=== PATIENT | female | born 1970 | race African-American/Black ===

== ENCOUNTER 2018-04-02 18:32 | Observation (INO) | payer OTHER ==
[~2018-04-02 18:32] MED LIST: FLUTI110I INH; PERC10TA27 PO
[2018-04-02] MEDS ORDERED: PERC10TA27 PO (18:53)
[2018-04-02] MEDS ORDERED: PROM12.54 PO (18:53)
[2018-04-02] MEDS ORDERED: CEPH-460 PO (18:53)
[2018-04-02] MEDS ORDERED: SODIUM CHLOR 0.9% 1000 ML INJ 1,000 ML IV ONE (19:15)
[2018-04-02] MEDS ORDERED: PROCHLORPERAZINE INJ 10 MG/2 ML VIAL IV PUSH ONE (19:30)
--- NOTE | 2018-04-02 19:32 | PD ---
HPI Chief Complaint: GI Complaint Time Seen by Provider: 19:00 Travel History International Travel<30 days: No Contact w/Intl Traveler<30days: No Traveled to known affect area: No History of Present Illness HPI The patient is a 47 year old female who presents to the [facility] emergency department with a history of nausea and vomiting that has been persistent since Monday. The patient reports that on Monday, 1 week ago she underwent breast reduction with Dr. Martínez and tolerated the procedure well, in fact she reports that this is her second breast reduction with him, however on Monday she additionally underwent an abdominoplasty. She reports that she was discharged on Monday and Monday began to have nausea and vomiting that has been intractable since 4 PM[address] She did [address] Dr[address] Berry in his office earlier today and her drains were removed from her breasts. She reports that he palpated her abdomen and gave her prescription for Zofran. She reports that she has been taking Zofran every 8 hours without relief. She reports that yesterday she had vomiting 10, today she had vomiting 3. She denies having any fevers. She reports having generalized weakness and dyspnea on exertion since yesterday. She denies having any diarrhea. Her last bowel movement was a small hard bowel movement yesterday. She reports that she is taking Dulcolax. On review of systems otherwise, she denies having any cough or congestion, neck pain, chest pain, urinary symptoms, or neurologic symptoms. The patient reports that her abdominal pain has increased postoperatively since yesterday, however she attributes that to pain from the vomiting. The patient reports that she has had increased problems with acid reflux since the surgery. She denies having any lower extremity edema, calf pain, or erythema. She denies being on any blood thinners [facility] Past Medical History Narrative Medical The patient's past medical history is significant for gastritis, COPD, acid reflux, hepatitis C, hyperlipidemia, hypothyroid disorder, arthritis, back pain Cancer: No Cardiovascular Problems: No Diabetes: No Endocrine: Yes Genitourinary: No Hepatitis: No Hiatal Hernia: No Immune Disorder: No Musculoskeletal: Yes (ARTHRITIS, BACK PAIN) Neurologic: No Psychiatric: No Reproductive: No Respiratory: Yes (CURRENT BRONCHIOITIS) Thyroid Disease: Yes (LOW NORM HYPO) ?: Not LMP: HYSTERECTOMY Past Surgical History Narrative Surgical The patient's past surgical history is significant for breast reduction 2, appendectomy, endoscopy and colonoscopy, hysterectomy, bilateral tubal ligation , abdominoplasty. AICD: No Gynecologic Surgery: Yes (TUBAL LIG., HYSTERECTOMY) Hysterectomy: Yes Joint Replacement: No Pacemaker: No Other Surgery: Yes (TUMMY TUCK, BREAST AUGMENTATION) Social History Alcohol Use: No Tobacco Use: No Substance Use: No Allergies-Medications (Allergen,Severity, Reaction): Coded Allergies: doxycycline (Unverified Allergy, Severe, INNER EAR BURNING, 04/02/18) minocycline (Unverified Allergy, Severe, INNER EAR BURNING, 06/27/17) tetracycline (Verified Allergy, Severe, 04/02/18) ears burn Reported Meds & Prescriptions Reported Meds & Active Scripts Active Reported Promethazine (Promethazine HCl) 12.5 Mg Tab Unknown Dose PO Q6H PRN Keflex (Cephalexin) 500 Mg Cap 500 Mg PO Q12H Percocet (Oxycodone-Acetaminophen) 10-325 mg Tab 1 Tab PO Q4H PRN Review of Systems Except as stated in HPI: all other systems reviewed are Neg General / Constitutional: No: Fever Eyes: No: Visual changes HENT: No: Headaches, Congestion Cardiovascular: Positive: Dyspnea on exertion, No: Chest Pain or Discomfort Respiratory: Positive: Shortness of Breath, No: Cough Gastrointestinal: Positive: Nausea, Vomiting, Abdominal Pain, Constipation, Changes in Bowel Habits, Indigestion, No: Diarrhea, Hematemesis, Hematochezia, Loss of Appetite Genitourinary: No: Dysuria Musculoskeletal: No: Pain Skin: No Rash Neurologic: Positive: Weakness (Generalized), No: Focal Abnormalities, Change in Mentation, Slurred Speech, Sensory Disturbance Psychiatric: No: Depression Endocrine: No: Polydipsia Hematologic/Lymphatic: No: Easy Bruising Physical Exam Narrative General: The patient is a well-developed well-nourished female in no acute distress Head and Neck exam: Head is normocephalic atraumatic. Eyes: EOMI, pupils are equal round and reactive to light. Nose: Midline septum with pink mucous membranes Mouth: Dentition unremarkable. Moist mucus membranes. Posterior oropharynx is not erythematous. No tonsillar hypertrophy. Uvula midline. Airway patent. Neck: No palpable lymphadenopathy. No nuchal rigidity. No thyromegaly. Cardiovascular: Sinus tachycardia in the 1 teens without murmurs, gallops, or rubs. No pulse deficit to the extremities on simultaneous auscultation and palpation of her radial artery. On examination of the patient's chest, the patient has postoperative wounds noted that are healing well without any signs of erythema, edema, or drainage. Lungs: Clear to auscultation bilaterally. No wheezes, rhonchi, or rales. Abdomen: Mildly distended with normoactive bowel sounds audible. The patient has an abdominal binder in place with [address] draining a serosanguineous drainage. The patient's abdominal binder was released and the abdominal wounds were examined. The patient has healing wounds without any signs of infection or drainage along the lower aspect of the abdomen. No guarding, rebound, or rigidity. Extremities: No clubbing, cyanosis, or edema. 2+ pulses in all 4 extremities. No calf tenderness on palpation. Negative Homans sign. Back: No costovertebral angle tenderness to palpation. Neurologic Exam: Grossly nonfocal. Skin Exam: No rash noted. Intact skin that is warm and dry. Data Data Orders Orders Electrocardiogram (04/02/18:) Complete Blood Count With Diff (04/02/18:) Comprehensive Metabolic Panel (04/02/18:) Creatine Kinase (Cpk) (04/02/18:) Ckmb (Isoenzyme) Profile (04/02/18:) Troponin I (04/02/18:) Prothrombin Time / Inr (Pt) (04/02/18:) Act Partial Throm Time (Ptt) (04/02/18:) Lipase (04/02/18:) Urinalysis - C+S If Indicated (04/02/18:) Magnesium (Mg) (04/02/18:) Iv Access Insert/Monitor (04/02/18:) Ecg Monitoring (04/02/18:) Oximetry (04/02/18:) Sodium Chlor 0.9% 1000 Ml Inj (Ns 1000 M (04/02/18 19:15) Prochlorperazine Inj (Compazine Inj) (04/02/18 19:30) Abdomen, Kub Only (04/02/18 19:20) Morphine Inj (Morphine Inj) (04/02/18 20:15) Oral Rehydration (04/02/18 20:37) Us Abdomen Gallbladder (04/02/18 21:35) Admit Order (Ed Use Only) (04/02/18 21:37) Labs Laboratory Tests Test 04/02/18 20:15 White Blood Count 12.1 TH/MM3 Red Blood Count 4.93 MIL/MM3 Hemoglobin 12.0 GM/DL Hematocrit 36.9 % Mean Corpuscular Volume 74.8 FL Mean Corpuscular Hemoglobin 24.4 PG Mean Corpuscular Hemoglobin Concent 32.6 % Red Cell Distribution Width 15.2 % Platelet Count 314 TH/MM3 Mean Platelet Volume 8.6 FL Neutrophils (%) (Auto) 82.0 % Lymphocytes (%) (Auto) 9.3 % Monocytes (%) (Auto) 8.2 % Eosinophils (%) (Auto) 0.2 % Basophils (%) (Auto) 0.3 % Neutrophils # (Auto) 9.9 TH/MM3 Lymphocytes # (Auto) 1.1 TH/MM3 Monocytes # (Auto) 1.0 TH/MM3 Eosinophils # (Auto) 0.0 TH/MM3 Basophils # (Auto) 0.0 TH/MM3 CBC Comment DIFF FINAL Differential Comment Prothrombin Time 10.7 SEC Prothromb Time International Ratio 1.1 RATIO Activated Partial Thromboplast Time 25.2 SEC D-Dimer Quantitative (PE/DVT) 2.98 MG/L FEU Blood Urea Nitrogen 11 MG/DL Creatinine 1.09 MG/DL Random Glucose 128 MG/DL Total Protein 7.7 GM/DL Albumin 3.3 GM/DL Calcium Level 8.8 MG/DL Magnesium Level 2.6 MG/DL Alkaline Phosphatase 97 U/L Aspartate Amino Transf (AST/SGOT) 183 U/L Alanine Aminotransferase (ALT/SGPT) 149 U/L Total Bilirubin 0.8 MG/DL Sodium Level 141 MEQ/L Potassium Level 3.6 MEQ/L Chloride Level 103 MEQ/L Carbon Dioxide Level 29.6 MEQ/L Anion Gap 8 MEQ/L Estimat Glomerular Filtration Rate 65 ML/MIN Total Creatine Kinase 63 U/L Troponin I LESS THAN 0.02 NG/ML Lipase 99 U/L MDM Medical Decision Making Medical Screen Exam Complete: Yes Emergency Medical Condition: Yes Medical Record Reviewed: Yes Differential Diagnosis Ileus, versus reflux from pressure from abdominal binder, versus bowel obstruction, versus electrolyte derangements, versus dehydration Narrative Course During the course of the patient's emergency department visit, the patient's history, examination, and differential diagnosis were reviewed with the patient. The patient was placed on a research and development engineer with oximetry and frequent blood pressure monitoring. The patient had IV access obtained and blood work sent for analysis. The patient's case was discussed with Dr. Berry. He recommended that the abdominal binder be released. He recommended a KUB to rule out obstruction although he doubts any obstruction as she did not have a hernia that required repair. The patient had a EKG done on arrival that shows a sinus tachycardia rate of 102, QRS duration 77 ms, QTC [address] segment elevation is noted. The patient was initially provided normal saline 1 L IV fluid bolus, Compazine 5 mg IV. The patient's laboratory studies were reviewed and remarkable for a white count of 12.1, hemoglobin 12, platelets 314 with neutrophils 82, CMP is remarkable for creatinine 1.09, glucose 128, magnesium 2.6, AST 183, ALT 149, cardiac enzymes within normal limits, lipase 99, PT PTT within normal limits, d-dimer is 2.98-CTA to rule out PE was ordered, urinalysis shows trace occult. Radiology studies were reviewed and remarkable for Last Impressions Gall Bladder Ultrasound 04/02/182134 Signed Impressions: Service Date/Time: Monday, April 02, 2018 23:07 - CONCLUSION: 1. Mild echogenic debris in the gallbladder with no gallstones or wall thickening. 2. Small amount of free fluid in Apodaca's pouch. Michele Andrew MD Abdomen X-Ray 04/02/[id number] Signed Impressions: Service Date/Time: Monday, April 02, 2018 19:28 - CONCLUSION: No acute abnormality. James Fuller Jr., MD CTA to rule out PE shows no evidence of pulmonary embolism, mild pulmonary infiltrate in the right lower lobe which could represent early pneumonia. Minimal pleural fluid and posterior thickening along the right lower lobe, multiple small gas collections along the posterior aspect of both breasts but no pneumothorax or pneumomediastinum. This is of unclear significance and could be secondary to recent instrumentation. The patient's results were discussed with the patient, including the plan of care. I explained that further testing and/ or monitoring is indicated based on the patient's history, examination, and/ or laboratory findings. Therefore, I recommended admission for additional evaluation. The patient expressed understanding and was agreeable with this plan. The patient was admitted to the hospital in stable condition and sent to a bed under the care of the [facility] service. Physician Communication Physician Communication The patient's case was discussed with Dr. Berry, at 19:28. He recommended a KUB of the abdomen. He recommended hydration and nausea medication. He recommended that I call her back on his cell phone ([phone]) to update them regarding the results. Dr. Berry, called again at approximately 9:35 PM. Given the patient's elevated liver enzymes he agree with the plan to proceed with an ultrasound of the liver. He did agree with the plan to admit the patient for observation for IV fluids and nausea control. The patient's case including history, pertinent physical examination findings, and laboratory studies were discussed with Denice. . It was agreed that the patient would be admitted to the [facility] service. Diagnosis Primary Impression: Nausea & vomiting Qualified Codes: R11.2 - Nausea with vomiting, unspecified Additional Impression: Elevated liver enzymes Admitting Information Admitting Physician Requests: Observation Chelo Adkins MD April 02, 2018 19:32
--- NOTE | 2018-04-02 19:52 | RADRPT ---
EXAM DATE/TIME: 04/02/2018 19:28 [facility] COMPARISON: No previous studies available for comparison. INDICATIONS : Abdominal pain. Recent abdomen surgery. MEDICAL HISTORY : None. SURGICAL HISTORY : Hysterectomy. Tubal ligation. Tummy tuck. Breast augmentation. ENCOUNTER: Initial ACUITY: 4 - 6 days PAIN SCORE: 10/10 LOCATION: Abdomen. FINDINGS: 2 supine views of the abdomen show artifact from the patient's abdominal binder. Gas-filled loops of nondilated large and small bowel observed. There is a loop of small bowel is gas filled within the mi d abdomen. No wall thickening or dilatation. No gross pneumoperitoneum in this supine study. Gas and stool seen within the rectal vault. No discrete organomegaly or abnormal calcifications. Scoliotic cu rvature of the spine. CONCLUSION: No acute abnormality. James Fuller Jr., MD on April 02, 2018 at 19:49 Board Certified Radiologist. This report was verified electronically.
[2018-04-02] MEDS ORDERED: MORPHINE SULFATE 4 MG/ML INJ IV ONE (20:15)
[2018-04-02 20:34] LABS: AUTOMATED NEUTROPHIL # 9.9 TH/MM3 (1.8-7.7); BASOPHIL % 0.3 % (0.0-2.0); EOSINOPHIL % 0.2 % (0.0-4.0); HEMATOCRIT 36.9 % (35.0-46.0); LYMPH % 9.3 % (9.0-44.0); LYMPHOCYTE # 1.1 TH/MM3 (1.0-4.8); MEAN CELL VOLUME 74.8 FL (80.0-100.0); MEAN CORPUSCULAR HEMOGLOBIN 24.4 PG (27.0-34.0); MEAN CORPUSCULAR HGB CONC 32.6 % (32.0-36.0); MEAN PLATELET VOLUME 8.6 FL (7.0-11.0); MONO % 8.2 % (0.0-8.0); PLATELET COUNT 314 TH/MM3 (150-450); RED BLOOD COUNT 4.93 MIL/MM3 (4.00-5.30); RED CELL DISTRIBUTION WIDTH 15.2 % (11.6-17.2); WHITE BLOOD COUNT 12.1 TH/MM3 (4.0-11.0)
[2018-04-02 20:57] LABS: ALBUMIN 3.3 GM/DL (3.4-5.0); ALT (GPT) 149 U/L (10-53); AST (GOT) 183 U/L (15-37); BICARBONATE 29.6 MEQ/L (21.0-32.0); BLOOD UREA NITROGEN 11 MG/DL (7-18); CALCIUM 8.8 MG/DL (8.5-10.1); CHLORIDE 103 MEQ/L (98-107); CREATININE 1.09 MG/DL (0.50-1.00); GLOMERULAR FILTRATION RATE 65 ML/MIN (>89); GLUCOSE,RANDOM 128 MG/DL (74-106); MAGNESIUM 2.6 MG/DL (1.5-2.5); SODIUM (NA) 141 MEQ/L (136-145)
[2018-04-02 20:59] LABS: INTERNATIONAL NORMALIZED RATIO 1.1 RATIO; PROTHROMBIN TIME - PATIENT 10.7 SEC (9.8-11.6)
[2018-04-02 21:01] LABS: ALKALINE PHOSPHATASE 97 U/L (45-117); TOTAL BILIRUBIN ADULT 0.8 MG/DL (0.2-1.0); TOTAL PROTEIN 7.7 GM/DL (6.4-8.2); TROPONIN I LESS THAN 0.02 NG/ML (0.02-0.05)
[2018-04-02] MEDS ORDERED: BISACODYL 10 MG SUPP RECTAL PRN (23:00)
[2018-04-02] MEDS ORDERED: MAGNESIUM HYDROXIDE SUSP 30 ML CUP PO PRN (23:00)
[2018-04-02] MEDS ORDERED: NALOXONE HCL 0.4 MG/ML AMP IV PUSH PRN (23:00)
[2018-04-02] MEDS ORDERED: SODIUM CHLORIDE 0.9% FLUSH 10 ML FLUSH IV FLUSH PRN (23:00)
[2018-04-02] MEDS ORDERED: LACTULOSE SYRUP 20 GM/30 ML CUP PO PRN (23:00)
[2018-04-02] MEDS ORDERED: SENNOSIDES 8.6 MG TAB PO PRN (23:00)
[2018-04-02] MEDS ORDERED: ACETAMINOPHEN 325 MG TAB PO PRN (23:00)
--- NOTE | 2018-04-02 23:03 | HHI.HP ---
HPI Service [facility] Primary Care Physician Ceferino Rawls M.D. Admission Diagnosis Generalized weakness, dehydration, n/v, elevated lfts Diagnoses: Chief Complaint: Intractable nausea, vomiting. Travel History International Travel<30 Days: No Contact w/Intl Traveler <30 Da: No Traveled to Known Affected Are: No History of Present Illness Ms. Cam is a pleasant 47 year old female with a recent history of breast reduction (03/26) and abdominoplasty (03/30) who presents to the ED due to intractable nausea, vomiting. She saw her plastic surgeon, Dr. Berry today who prescribed Zofran for her. Despite supportive care, her symptoms have not subsided. She also reports generalized weakness as well as dyspnea on exertion since yesterday. Patient reports significant odynophagia. She also has a history of GERD but her symptoms have been more pronounced in the last few days. She denies any chest pain, shortness of breath, fever or chills. At the time of this interview, patient is resting well and denies any active nausea vomiting. She does report constipation recently. However she had a bowel movement yesterday. No changes in bladder habits. Review of Systems Except as stated in HPI: all other systems reviewed are Neg Past Family Social History Past Medical History Hypothyroidism, arthritis, GERD Past Surgical History Previous breast reduction surgery, tubal ligation, hysterectomy Reported Medications Promethazine (Promethazine HCl) 12.5 Mg Tab Unknown Dose PO Q6H PRN Keflex (Cephalexin) 500 Mg Cap 500 Mg PO Q12H Percocet (Oxycodone-Acetaminophen) 10-325 mg Tab 1 Tab PO Q4H PRN Allergies: Coded Allergies: doxycycline (Unverified Allergy, Severe, INNER EAR BURNING, 04/02/18) minocycline (Unverified Allergy, Severe, INNER EAR BURNING, 06/27/17) tetracycline (Verified Allergy, Severe, 04/02/18) ears burn Family History Father had coronary artery disease. Mother has hypertension, hyperlipidemia. Social History Alcohol Use: No Tobacco Use: No Substance Use: No Physical Exam Physical Exam GENERAL: This is a well-nourished, well-developed patient, in no apparent distress. SKIN: No rashes, ecchymoses or lesions. Warm and dry. HEAD: Atraumatic. Normocephalic. No temporal or scalp tenderness. EYES: Pupils equal round and reactive. No injection or drainage. ENT: Nose without bleeding, purulent drainage or septal hematoma. Airway patent. NECK: Trachea midline. No lymphadenopathy. Supple, nontender, no meningeal signs. CARDIOVASCULAR: Regular rate and rhythm without murmurs, gallops, or rubs. No JVD. RESPIRATORY: Clear to auscultation. Breath sounds equal bilaterally. No wheezes , rales, or rhonchi. GASTROINTESTINAL: Abdomen soft, non-tender, nondistended. No guarding. Abdominal binder in place as well as [place] drain. MUSCULOSKELETAL: Extremities without clubbing, cyanosis, or edema. NEUROLOGICAL: Awake and alert. Cranial nerves II through XII intact. No focal neurological deficits. Normal speech. Laboratory Laboratory Tests Test 04/02/18 20:15 White Blood Count 12.1 Red Blood Count 4.93 Hemoglobin 12.0 Hematocrit 36.9 Mean Corpuscular Volume 74.8 Mean Corpuscular Hemoglobin 24.4 Mean Corpuscular Hemoglobin Concent 32.6 Red Cell Distribution Width 15.2 Platelet Count 314 Mean Platelet Volume 8.6 Neutrophils (%) (Auto) 82.0 Lymphocytes (%) (Auto) 9.3 Monocytes (%) (Auto) 8.2 Eosinophils (%) (Auto) 0.2 Basophils (%) (Auto) 0.3 Neutrophils # (Auto) 9.9 Lymphocytes # (Auto) 1.1 Monocytes # (Auto) 1.0 Eosinophils # (Auto) 0.0 Basophils # (Auto) 0.0 CBC Comment DIFF FINAL Differential Comment Prothrombin Time 10.7 Prothromb Time International Ratio 1.1 Activated Partial Thromboplast Time 25.2 Blood Urea Nitrogen 11 Creatinine 1.09 Random Glucose 128 Total Protein 7.7 Albumin 3.3 Calcium Level 8.8 Magnesium Level 2.6 Alkaline Phosphatase 97 Aspartate Amino Transf (AST/SGOT) 183 Alanine Aminotransferase (ALT/SGPT) 149 Total Bilirubin 0.8 Sodium Level 141 Potassium Level 3.6 Chloride Level 103 Carbon Dioxide Level 29.6 Anion Gap 8 Estimat Glomerular Filtration Rate 65 Total Creatine Kinase 63 Troponin I LESS THAN 0.02 Lipase 99 Result Diagram: 04/02/18201404/02/182014 Imaging Last Impressions Abdomen X-Ray 04/02/18 1920 Signed Impressions: Service Date/Time: Monday, April 02, 2018 19:28 - CONCLUSION: No acute abnormality. MD Brian Friedman Jr. VTE Risk Assessment Brian VTE Risk Assessment: No/Low Risk (score <= 1) Caprini Risk Assessment Model Point Value = 1 Point Value = 2 Point Value = 3 Point Value = 5 Age 41-60 Minor surgery BMI > 25 kg/m2 Swollen legs Varicose veins or History of unexplained or recurrent spontaneous Oral contraceptives or hormone replacement Sepsis (< 1 month) Serious lung disease, including pneumonia (< 1 month) Abnormal pulmonary function Acute myocardial infarction Congestive heart failure (< 1 month) History of inflammatory bowel disease Medical patient at bed rest Age 61-74 Arthroscopic surgery Major open surgery (> 45 min) Laparoscopic surgery (> 45 min) Malignancy Confined to bed (> 72 hours) Immobilizing plaster cast Central venous access Age >= 75 History of VTE Family history of VTE Factor V Leiden Prothrombin 31700C Lupus anticoagulant Anticardiolipin antibodies Elevated serum homocysteine Heparin-induced thrombocytopenia Other congenital or acquired thrombophilia Stroke (< 1 month) Elective arthroplasty Hip, pelvis, or leg fracture Acute spinal cord injury (< 1 month) Prophylaxis Regimen Total Risk Factor Score Risk Level Prophylaxis Regimen 0-1 Low Early ambulation 2 Moderate Order ONE of the following: *Sequential Compression Device (SCD) *Heparin 5000 units SQ BID 3-4 Higher Order ONE of the following medications: *Heparin 5000 units SQ TID *Enoxaparin/Lovenox 40 mg SQ daily (WT < 150 kg, CrCl > 30 mL/min) *Enoxaparin/Lovenox 30 mg SQ daily (WT < 150 kg, CrCl > 10-29 mL/min) *Enoxaparin/Lovenox 30 mg SQ BID (WT < 150 kg, CrCl > 30 mL/min) AND/OR *Sequential Compression Device (SCD) 5 or more Highest Order ONE of the following medications: *Heparin 5000 units SQ TID (Preferred with Epidurals) *Enoxaparin/Lovenox 40 mg SQ daily (WT < 150 kg, CrCl > 30 mL/min) *Enoxaparin/Lovenox 30 mg SQ daily (WT < 150 kg, CrCl > 10-29 mL/min) *Enoxaparin/Lovenox 30 mg SQ BID (WT < 150 kg, CrCl > 30 mL/min) AND *Sequential Compression Device (SCD) Assessment and Plan Problem List: (1) Nausea & vomiting ICD Code: R11.2 - Nausea with vomiting, unspecified Status: Acute (2) Elevated liver enzymes ICD Code: R74.8 - Abnormal levels of other serum enzymes Status: Acute Assessment and Plan Ms. Cam is a pleasant 47-year-old -[place] female with a recent history of breast reduction as well as abdominoplasty who presents to the emergency department due to nausea and vomiting that started on 04/01/2018. Patient went to her plastic surgeon who prescribed antinausea medication. However, despite supportive care, her symptoms continued to be persistent. Intractable nausea and vomiting Elevated liver enzymes GERD -Clear liquid diet for now. Advance diet as tolerated. -We will give patient 1 dose of Protonix IV. From tomorrow we can start lansoprazole ODT -IV fluid normal saline at 100 cc/h -Elevated liver enzymes AST 183, ALT 149 could be due to gastroenteritis. -CBC, CMP in the morning. -If liver enzymes continue to trend up, consider hepatitis panel. -GB US obtained by ED unremarkable. Mild Acute kidney injury - Creatinine 1.09, eGFR 65. Likely due to volume depletion. - Will repeat chemistry panel in the AM. Continue IV fluid. Misc: - Pt denies having a diagnosis of Hep C. Also, she reports hypothyroidism but does not take any medications. Patient can follow up in the outpatient setting. - A D-dimer was done in the ED and it was elevated. Subsequently, patient underwent CT PE study which is still pending at the time of writing this note. - No clinical suspicion for DVT, PE. D-dimer is likely elevated due to gastroenteritis. Full code. Ambulation. Problem Qualifiers (1) Nausea & vomiting: Qualified Codes: R11.2 - Nausea with vomiting, unspecified Avila Galdamez DO April 02, 2018 23:03
[2018-04-02] MEDS: SODIUM CHLOR 0.9% 1000 ML INJ 1,000 ML IV SCH (23:10)
[2018-04-02] MEDS: METOCLOPRAMIDE HCL 10 MG/2 ML VIAL IV PUSH PRN (23:11)
[2018-04-02] MEDS: MORPHINE SULFATE 4 MG/ML INJ IV PUSH PRN (23:13)
[2018-04-02 23:33] VITALS: BP 136/86; PULSE 89; RESP 18; TEMP 99.1; O2SAT 96
--- NOTE | 2018-04-02 23:35 | RADRPT ---
EXAM DATE/TIME: 04/02/2018 23:07 [facility] COMPARISON: No previous studies available for comparison. INDICATIONS : Right upper quadrant pain. MEDICAL HISTORY : Hypothyroidism. Bronchitis. Arthritis. Back pain. SURGICAL HISTORY : Tubal ligation. Hysterectomy. Tummy tuck. Breast augmentation. ENCOUNTER: Initial ACUITY: 4-6 days PAIN SCORE: 5/10 LOCATION: Right upper quadrant MEASUREMENTS: LIVER: 14.9 cm length COMMON DUCT: 5 mm RIGHT KIDNEY: 9.0 x 4.5 x 3.6 cm FINDINGS: LIVER: Normal echotexture without focal lesion or ductal dilatation. COMMON DUCT: No intraluminal mass or stone visualized. GALLBLADDER: Contains no stones, demonstrates no wall thickening or pericholecystic fluid. Mild echogenic debris is noted in the gallbladder. PANCREAS: The visualized portions are within normal limits. RIGHT KIDNEY: No evidence of hydronephrosis, stone, or mass. A small amount of free fluid is noted in Apodaca's p ouch. CONCLUSION: 1. Mild echogenic debris in the gallbladder with no gallstones or wall thickening. 2. Small amount of free fluid in Apodaca's pouch. Michele Andrew MD on April 02, 2018 at 23:32 Board Certified Radiologist. This report was verified electronically.
[2018-04-03 00:06] VITALS: BP 140/86; PULSE 93; RESP 22; TEMP 99.2; O2SAT 97
[2018-04-03] MEDS ORDERED: IOHEXOL 350 MG/ML 10 ML VIAL (for RAD DIAG) IVCONTRAST ONE ×2 (00:42→18:14)
[2018-04-03] MEDS ORDERED: PANTOPRAZOLE SODIUM 40 MG VIAL IV PUSH ONE (00:45)
--- NOTE | 2018-04-03 00:57 | RADRPT ---
EXAM DATE/TIME: 04/03/2018 00:40 [place] COMPARISON: No previous studies available for comparison. INDICATIONS : Chest pain. IV CONTRAST: 81 cc Omnipaque 350 (iohexol) IV RADIATION DOSE: 18.45 CTDIvol (mGy) MEDICAL HISTORY : Chronic obstructive pulmonary disease. Hepatitis C. SURGICAL HISTORY : Hysterectomy. ENCOUNTER: Initial ACUITY: 1 day PAIN SCALE: 5/10 LOCATION: Bilateral chest TECHNIQUE: Volumetric scanning of the chest was performed using a pulmonary embolism protocol MIP images were re constructed. Using automated exposure control and adjustment of the mA and/or kV according to patien t size, radiation dose was kept as low as reasonably achievable to obtain optimal diagnostic quality images. DICOM format image data is available electronically for review and comparison. Follow-up recommendations for detected pulmonary nodules are based at a minimum on nodule size and pa tient risk factors according to Fleischner Society Guidelines. FINDINGS: PULMONARY ARTERIES: No filling defects are seen in the pulmonary arteries through the segmental level. LUNGS: There is no pneumothorax . There is atelectasis in the posterior lung bases bilaterally. No concerni ng pulmonary nodule is visualized. There is mild patchy infiltrate in the right middle lobe best seen on axial image #65. PLEURAE: There is minimal right posterior pleural fluid and thickening as well as adjacent atelectasis. MEDIASTINUM: There is good visualization of the great vessels of the middle mediastinum. No evidence of mediastin al or hilar adenopathy/mass. MUSCULOSKELETAL: Within normal limits for patient age. MISCELLANEOUS: The visualized upper abdominal organs demonstrate no acute abnormality. There are multiple small gas collections along the posterior aspect of both breasts. CONCLUSION: 1. No evidence of pulmonary embolism. 2. Mild pulmonary infiltrate in the right lower lobe which could represent early pneumonia. 3. Minimal pleural fluid and posterior thickening along the right lower lobe. 4. Multiple small gas collections along the posterior aspects of both breasts but no pneumothorax or pneumomediastinum. This of unclear significance and could be secondary to recent instrumentation. Michele Andrew MD on April 03, 2018 at 0:50 Board Certified Radiologist. This report was verified electronically.
[2018-04-03 01:17] LABS: BILIRUBIN, URINE NEG (NEG); GLUCOSE,URINE NEG (NEG); KETONE, URINE TRACE mg/dL (NEG); NITRITE,URINE NEG (NEG); URINE COLOR YELLOW (YELLW/STRAW); URINE LEUKOCYTE ESTERASE NEG (NEG)
[2018-04-03 01:20] LABS: BLOOD, URINE TRACE (NEG)
[2018-04-03 01:23] LABS: MUCUS URINE FEW /lpf (OCC); SQUAMOUS EPITHELIAL CELL URINE 3 /hpf (0-5)
[2018-04-03 04:29] LABS: AUTOMATED NEUTROPHIL # 8.5 TH/MM3 (1.8-7.7); BASOPHIL % 0.2 % (0.0-2.0); EOSINOPHIL # 0.1 TH/MM3 (0-0.4); HEMATOCRIT 30.6 % (35.0-46.0); HEMOGLOBIN 9.9 GM/DL (11.6-15.3); LYMPH % 13.8 % (9.0-44.0); LYMPHOCYTE # 1.6 TH/MM3 (1.0-4.8); MEAN CELL VOLUME 74.4 FL (80.0-100.0); MEAN CORPUSCULAR HEMOGLOBIN 24.1 PG (27.0-34.0); MEAN CORPUSCULAR HGB CONC 32.4 % (32.0-36.0); MEAN PLATELET VOLUME 9.1 FL (7.0-11.0); MONO % 9.6 % (0.0-8.0); MONOCYTE # 1.1 TH/MM3 (0-0.9); NEUT % 75.4 % (16.0-70.0); PLATELET COUNT 281 TH/MM3 (150-450); RED BLOOD COUNT 4.12 MIL/MM3 (4.00-5.30); RED CELL DISTRIBUTION WIDTH 14.9 % (11.6-17.2); WHITE BLOOD COUNT 11.3 TH/MM3 (4.0-11.0)
[2018-04-03 04:44] VITALS: BP 116/70; PULSE 94; RESP 16; TEMP 98.9; O2SAT 97
[2018-04-03 05:01] LABS: ALBUMIN 2.9 GM/DL (3.4-5.0); ALT (GPT) 114 U/L (10-53); AST (GOT) 83 U/L (15-37); BICARBONATE 27.6 MEQ/L (21.0-32.0); BLOOD UREA NITROGEN 11 MG/DL (7-18); CALCIUM 8.4 MG/DL (8.5-10.1); CHLORIDE 107 MEQ/L (98-107); CREATININE 0.87 MG/DL (0.50-1.00); GLOMERULAR FILTRATION RATE 84 ML/MIN (>89); GLUCOSE,RANDOM 99 MG/DL (74-106); SODIUM (NA) 144 MEQ/L (136-145)
[2018-04-03 05:07] LABS: ALKALINE PHOSPHATASE 81 U/L (45-117); TOTAL BILIRUBIN ADULT 0.5 MG/DL (0.2-1.0); TOTAL PROTEIN 6.3 GM/DL (6.4-8.2)
[2018-04-03] MEDS: LANSOPRAZOLE SOLUTAB 30 MG TAB PO SCH (07:38)
[2018-04-03] MEDS: ONDANSETRON ODT 4 MG TAB PO PRN ×2 (07:38→21:18)
[2018-04-03] MEDS: MORPHINE SULFATE 4 MG/ML INJ IV PUSH PRN (07:39)
[2018-04-03] MEDS: METOCLOPRAMIDE HCL 10 MG/2 ML VIAL IV PUSH PRN ×2 (07:42→23:22)
[2018-04-03 08:10] VITALS: BP 120/74; PULSE 85; RESP 20; TEMP 98.5; O2SAT 96
[2018-04-03] MEDS: SODIUM CHLORIDE 0.9% FLUSH 10 ML FLUSH IV FLUSH SCH ×2 (09:00→21:00)
--- NOTE | 2018-04-03 09:38 | HHI.PR ---
Subjective Remarks Follow up on patient with intractable N/V, s/p breast reduction 03/26 and abdominoplasty 03/30. Patient seen and examined. Unable to tolerate clear liquid diet. +N/V this am. No fever or chills. She reports one episode of watery diarrhea yesterday and one this am. + epigastric pain. She denies any black/bloody/tarry stools. She denies any blood in the emesis. She has been on Keflex as outpatient following her surgical procedures. She has a previous hx of Cdiff in 2011. She reports occasional GERD like sxs relieved with Zantac. She has appointment with her plastic surgeon on Monday to have her abdominal drains removed. Objective Vitals Vital Signs Date Time Temp Pulse Resp B/P (MAP) Pulse Ox O2 Delivery O2 Flow Rate FiO2 04/03/18 08:10 98.5 85 20 120/74 (89) 96 04/03/18 04:44 98.9 94 16 116/70 (85) 97 04/03/18 00:06 99.2 93 22 140/86 (104) 97 04/03/18 00:00 20 04/02/18 23:33 99.1 89 18 136/86 (103) 96 Room Air I/O 04/02/18 04/02/18 04/02/18 04/03/18 04/03/18 04/03/18 07:00 15:00 23:00 07:00 15:00 23:00 Intake Total 1000 ml Output Total 200 ml Balance 1000 ml -200 ml Intake IV Total 1000 ml Output Emesis 200 ml Result Diagram: 04/03/18 0333 04/03/18 [address] Angiography 04/02/182321 Signed Impressions: Service Date/Time: Tuesday, April 03, 2018 00:40 - CONCLUSION: 1. No evidence of pulmonary embolism. 2. Mild pulmonary infiltrate in the right lower lobe which could represent early pneumonia. 3. Minimal pleural fluid and posterior thickening along the right lower lobe. 4. Multiple small gas collections along the posterior aspects of both breasts but no pneumothorax or pneumomediastinum. This of unclear significance and could be secondary to recent instrumentation. Michele Andrwe MD Gall Bladder Ultrasound 04/02/189 Signed Impressions: Service Date/Time: Monday, April 02, 2018 23:07 - CONCLUSION: 1. Mild echogenic debris in the gallbladder with no gallstones or wall thickening. 2. Small amount of free fluid in Apodaca's pouch. Michele Andrew MD Abdomen X-Ray 04/02/181919 Signed Impressions: Service Date/Time: Monday, April 02, 2018 19:28 - CONCLUSION: No acute abnormality. James Fuller Jr., MD Objective Remarks GENERAL: This is a well-nourished, well-developed female patient, in no apparent distress. Awake and alert. SKIN: No rashes, ecchymoses or lesions. Warm and dry. Surgical incisions around both breasts and abdomen appear to be healing well without any e/o infection. HEAD: Atraumatic. Normocephalic. No temporal or scalp tenderness. EYES: Pupils equal round and reactive. No injection or drainage. ENT: Nose without bleeding, purulent drainage or septal hematoma. Airway patent. NECK: Trachea midline. No lymphadenopathy. Supple, nontender, no meningeal signs. CARDIOVASCULAR: Regular rate and rhythm without murmurs, gallops, or rubs. No JVD. RESPIRATORY: Clear to auscultation. Breath sounds equal bilaterally. No wheezes , rales, or rhonchi. GASTROINTESTINAL: Abdomen soft, mildly distended, diffusely tender to palpation. No guarding. +BS. Abdominal binder in place as well as [place] drain x 2 with serosanguineous fluid. MUSCULOSKELETAL: Extremities without clubbing, cyanosis, or edema. NEUROLOGICAL: Awake and alert. Cranial nerves II through XII grossly intact. Motor and sensory function appears grossly intact. No focal neurological deficits. Normal speech. PSYCHIATRIC: Appropriate mood and affect. Normal judgement and insight. A/P Problem List: (1) Nausea & vomiting ICD Code: R11.2 - Nausea with vomiting, unspecified Status: Acute (2) Elevated liver enzymes ICD Code: R74.8 - Abnormal levels of other serum enzymes Status: Acute Assessment and Plan Ms. Cam is a pleasant 47-year-old -Turk[place] female with a recent history of breast reduction as well as abdominoplasty who presents to the emergency department due to nausea and vomiting that started on 04/01/2018. Patient went to her plastic surgeon who prescribed antinausea medication. However, despite supportive care, her symptoms continued to be persistent. Intractable nausea and vomiting possible gastroenteritis Elevated liver enzymes GERD Unable to tolerate clear liquid diet -Consult GI, appreciate recommendations -continue on IV antiemetics -continue on IV fluid normal saline at 100 cc/h -Prevacid ODT daily -obtain CT abd/pelvis -PT eval/tx Diarrhea x 2 episodes Hx of Cdiff 2011 s/p abx treatment for surgical procedures and recent 5 day course of Keflex postop -Send stool for C. difficile testing -Monitor BMs Transaminitis, suspect secondary to intractable N/V LFTs trending down GB US unremarkable -continue to trend LFTs -avoid hepatotoxic agents CTA negative for PE, mild pulmonary infiltrate in the right lower lobe -will not initiate abx therapy at this time as patient with no c/o cough, SOB, fever, chills. Incentive spirometry ordered for bedside, encouraged hourly use while awake -monitor Mild Acute kidney injury, resolved with IVF Creatinine 1.09, eGFR 65. Likely due to volume depletion. -continue IVF as still with N/V, unable to tolerate diet -avoid nephrotoxic agents -monitor kidney function as indicated s/p breast reduction 03/26 and abdominoplasty 03/30 -Consult patient's plastic surgeon Dr. Berry, appreciate recommendations -pain management Misc: - Pt denies having a diagnosis of Hep C. Also, she reports hypothyroidism but does not take any medications. Patient can follow up in the outpatient setting. Full code. Ambulation. Problem Qualifiers (1) Nausea & vomiting: Qualified Codes: R11.2 - Nausea with vomiting, unspecified Renee Boogie April 03, 2018 09:38
--- NOTE | 2018-04-03 11:11 | PD.CONS ---
HPI History of Present Illness This is a 47 year old female with hx prior c diff infection, s/p breast reduction and abdominoplasty 1 week ago who presented with n/v that started 2-3 days ago. She was constipated last night and took a dulcolax suppository. This morning she had an episode of water diarrhea. cites abd pain during vomiting in area of surgical incisions. She was taking keflex for her surgery and has had total of 4g ancef during surgeries. No blood in stool or black tarry stool. She denies sick contacts. She did take pain meds after surgery but has not had any in a few days other than what she's getting in ER. She had an EGD & colonoscopy done by Dr House in 2012 for c diff that wasn't improving. Pt recalls no abnormal findings. The infection did improve after being placed on oral vancomycin. She admits occasional acid reflux helped with zantac. (Bruna Lange) PFSH Past Medical History Hypothyroidism, arthritis, GERD Past Surgical History Previous breast reduction surgery, tubal ligation, hysterectomy (Bruna Lange) Coded Allergies: doxycycline (Unverified Allergy, Severe, INNER EAR BURNING, 04/02/18) minocycline (Unverified Allergy, Severe, INNER EAR BURNING, 06/27/17) tetracycline (Verified Allergy, Severe, 04/02/18) ears burn Family History Father had coronary artery disease. Mother has hypertension, hyperlipidemia. Social History Alcohol Use: No Tobacco Use: No Substance Use: No (Bruna Lange) Review of Systems Constitutional: DENIES: Fever Endocrine: DENIES: Polydipsia Eyes: DENIES: Blurred vision Ears, nose, mouth, throat: DENIES: Hearing loss Respiratory: DENIES: Wheezing Cardiovascular: DENIES: Chest pain Gastrointestinal: COMPLAINS OF: Diarrhea, Nausea, Vomiting, DENIES: Abdominal pain, Black stools, Bloody stools Genitourinary: DENIES: Hematuria Musculoskeletal: DENIES: Muscle aches Integumentary: DENIES: Abnormal pigmentation Hematologic/lymphatic: DENIES: Bruising Immunologic/allergic: DENIES: Eczema Neurologic: DENIES: Abnormal gait Psychiatric: DENIES: Anxiety (Bruna Lange) GI Exam Vitals I&O Vital Signs Date Time Temp Pulse Resp B/P (MAP) Pulse Ox O2 Delivery O2 Flow Rate FiO2 04/03/18 08:10 98.5 85 20 120/74 (89) 96 04/03/18 04:44 98.9 94 16 116/70 (85) 97 04/03/18 00:06 99.2 93 22 140/86 (104) 97 04/03/18 00:00 20 04/02/18 23:33 99.1 89 18 136/86 (103) 96 Room Air I/O 04/02/18 04/02/18 04/02/18 04/03/18 04/03/18 04/03/18 07:00 15:00 23:00 07:00 15:00 23:00 Intake Total 1000 ml Output Total 200 ml Balance 1000 ml -200 ml Intake IV Total 1000 ml Output Emesis 200 ml Imaging Last Impressions CT Angiography 04/02/182321 Signed Impressions: Service Date/Time: Tuesday, April 03, 2018 00:40 - CONCLUSION: 1. No evidence of pulmonary embolism. 2. Mild pulmonary infiltrate in the right lower lobe which could represent early pneumonia. 3. Minimal pleural fluid and posterior thickening along the right lower lobe. 4. Multiple small gas collections along the posterior aspects of both breasts but no pneumothorax or pneumomediastinum. This of unclear significance and could be secondary to recent instrumentation. Michele Andrew MD Gall Bladder Ultrasound 04/02/182134 Signed Impressions: Service Date/Time: Monday, April 02, 2018 23:07 - CONCLUSION: 1. Mild echogenic debris in the gallbladder with no gallstones or wall thickening. 2. Small amount of free fluid in Apodaca's pouch. Michele Andrew MD Abdomen X-Ray 04/02/181919 Signed Impressions: Service Date/Time: Monday, April 02, 2018 19:28 - CONCLUSION: No acute abnormality. James Fuller Jr., MD Laboratory Test 04/02/18 20:15 04/03/18 00:55 04/03/18 03:33 White Blood Count 12.1 TH/MM3 11.3 TH/MM3 Red Blood Count 4.93 MIL/MM3 4.12 MIL/MM3 Hemoglobin 12.0 GM/DL 9.9 GM/DL Hematocrit 36.9 % 30.6 % Mean Corpuscular Volume 74.8 FL 74.4 FL Mean Corpuscular Hemoglobin 24.4 PG 24.1 PG Mean Corpuscular Hemoglobin Concent 32.6 % 32.4 % Red Cell Distribution Width 15.2 % 14.9 % Platelet Count 314 TH/MM3 281 TH/MM3 Mean Platelet Volume 8.6 FL 9.1 FL Neutrophils (%) (Auto) 82.0 % 75.4 % Lymphocytes (%) (Auto) 9.3 % 13.8 % Monocytes (%) (Auto) 8.2 % 9.6 % Eosinophils (%) (Auto) 0.2 % 1.0 % Basophils (%) (Auto) 0.3 % 0.2 % Neutrophils # (Auto) 9.9 TH/MM3 8.5 TH/MM3 Lymphocytes # (Auto) 1.1 TH/MM3 1.6 TH/MM3 Monocytes # (Auto) 1.0 TH/MM3 1.1 TH/MM3 Eosinophils # (Auto) 0.0 TH/MM3 0.1 TH/MM3 Basophils # (Auto) 0.0 TH/MM3 0.0 TH/MM3 CBC Comment DIFF FINAL DIFF FINAL Differential Comment Prothrombin Time 10.7 SEC Prothromb Time International Ratio 1.1 RATIO Activated Partial Thromboplast Time 25.2 SEC D-Dimer Quantitative (PE/DVT) 2.98 MG/L FEU Blood Urea Nitrogen 11 MG/DL 11 MG/DL Creatinine 1.09 MG/DL 0.87 MG/DL Random Glucose 128 MG/DL 99 MG/DL Total Protein 7.7 GM/DL 6.3 GM/DL Albumin 3.3 GM/DL 2.9 GM/DL Calcium Level 8.8 MG/DL 8.4 MG/DL Magnesium Level 2.6 MG/DL Alkaline Phosphatase 97 U/L 81 U/L Aspartate Amino Transf (AST/SGOT) 183 U/L 83 U/L Alanine Aminotransferase (ALT/SGPT) 149 U/L 114 U/L Total Bilirubin 0.8 MG/DL 0.5 MG/DL Sodium Level 141 MEQ/L 144 MEQ/L Potassium Level 3.6 MEQ/L 3.7 MEQ/L Chloride Level 103 MEQ/L 107 MEQ/L Carbon Dioxide Level 29.6 MEQ/L 27.6 MEQ/L Anion Gap 8 MEQ/L 9 MEQ/L Estimat Glomerular Filtration Rate 65 ML/MIN 84 ML/MIN Total Creatine Kinase 63 U/L Troponin I LESS THAN 0.02 NG/ML Lipase 99 U/L Urine Color YELLOW Urine Turbidity CLEAR Urine pH 6.0 Urine Specific [place] 1.034 Urine Protein NEG mg/dL Urine Glucose (UA) NEG mg/dL Urine Ketones TRACE mg/dL Urine Occult Blood TRACE Urine Nitrite NEG Urine Bilirubin NEG Urine Urobilinogen 0.2 MG/DL Urine Leukocyte Esterase NEG Urine RBC LESS THAN 1 /hpf Urine WBC 1 /hpf Urine Squamous Epithelial Cells 3 /hpf Urine Mucus FEW /lpf Microscopic Urinalysis Comment CULT NOT INDICATED Physical Examination HEENT: PERRL; normocephalic; atraumatic; no jaundice. CHEST: CTA CARDIAC: RRR ABDOMEN: Soft, mildly distended, diffuse TTP; no hepatosplenomegaly; bowel sounds are present in all four quadrants. adin drains, serosanguineous fluid EXTREMITIES: No clubbing, cyanosis, or edema. SKIN: Normal; no rash; no jaundice. BAGGAGE CHECKER: No focal deficits; alert and oriented times three. (Bruna Lange) Assessment and Plan Plan ASSESSMENT - n/v - onset 3 days ago. Pt is 1 week s/p abdominoplasty, breast reduction. zofran, compazine not helping per pt. she is able to tolerate min fluids and some jello. had EGD/colonoscopy 2011 no abnormal findings. ?gastroenteritis vs gastroparesis vs esophagitis - anemia - microcytic, likely multifactorial and partly dilutional at this point - loose watery stool - x 1 this morning. had stool softener last night. hx c diff. + recent abx for surgery. colonoscopy as above - elevated LFTs - unclear significance, trending down. does not appear to be obstructive pattern. - leukocytosis - mild, wbc trending down PLAN - EGD tomorrow - obtain consent - NPO after midnight - clears today - prn antiemetics - c diff - stool studies - supportive care pt seen by myself and Dr Damon and this note is on his behalf (Bruna Lange) Physician Comments Patient seen and examined Agree with above Continue with current supportive care Monitor labs Plan EGD tomorrow (Holland Damon MD) Bruna Lange April 03, 2018 11:11 Holland Damon MD April 03, 2018 22:35
[2018-04-03 11:13] VITALS: BP 118/71; PULSE 88; RESP 20; TEMP 98.5; O2SAT 95
[2018-04-03] MEDS ORDERED: ACETAMINOPHEN/HYDROcodone 325 MG/10 MG TAB PO PRN (11:30)
[2018-04-03] MEDS: ACETAMINOPHEN/HYDROcodone 325 MG/5 MG TAB PO PRN ×2 (11:32→21:20)
[2018-04-03] MEDS: SODIUM CHLOR 0.9% 1000 ML INJ 1,000 ML IV SCH (11:55)
[2018-04-03] MEDS ORDERED: DIATRIZOATE MEGLUM/DIATRIZOATE SOD 9 ML CUP PO ONE (12:00)
--- NOTE | 2018-04-03 12:22 | PD.PLAS.PN ---
Subjective Remarks Thanks for consultation Patient known to me - had breast reduction 03/26 and abdominoplasty 03/30. Did well in the [facility] post op - discharged home. Experienced nausea - increasing over the week end Monday - was seen in my office on Monday04/02/18 I prescribed Zofran ODT as she could not keep even a tablet down - Later she called me in the evening as she did not get better and decided to go to the ER at [facility]. Has been evaluated and admitted for supportive care. Had Abd Xray -KUB, and Ultrasound abdomen - no significant changes. No bowel obstruction or gall bladder or liver issues. Does have elevated Liver enzymes - not clear etiology - possible result from the two general anesthesia?? Getting better now. Feels less nauseous and able to tolerate clear liquids. Getting more tests and GI evaluation on going. Chest - negative for PE. The findings of right side basal mild atelectasis is probably with diaphragm elevation due to the abdominoplasty. She should get an incentive spirometer and also be encouraged to walk. Examination shows normal postoperative surgical sites - both breast and abdomen are soft, no hematoma obvious, abdomen is slightly distended with gas - she is able to feel her bowel sounds active. Incision lines clean and healing Rec: I will be available for any plastic surgery intervention. Incentive spirometer at bedside judy pleas OOB walking with help. Diet orders as per the medical team /GI decision. Dressing changes. Vital Signs Date Time Temp Pulse Resp B/P (MAP) Pulse Ox O2 Delivery O2 Flow Rate FiO2 04/03/18 11:13 98.5 88 20 118/71 (87) 95 04/03/18 08:10 98.5 85 20 120/74 (89) 96 04/03/18 04:44 98.9 94 16 116/70 (85) 97 04/03/18 00:06 99.2 93 22 140/86 (104) 97 04/03/18 00:00 20 04/02/18 23:33 99.1 89 18 136/86 (103) 96 Room Air I/O 04/02/18 04/02/18 04/02/18 04/03/18 04/03/18 04/03/18 07:00 15:00 23:00 07:00 15:00 23:00 Intake Total 1000 ml 1000 ml Output Total 200 ml Balance 1000 ml 800 ml Intake IV Total 1000 ml 1000 ml Output Emesis 200 ml Laboratory Tests Test 04/02/18 20:15 04/03/18 00:55 04/03/18 03:33 White Blood Count 12.1 11.3 Red Blood Count 4.93 4.12 Hemoglobin 12.0 9.9 Hematocrit 36.9 30.6 Mean Corpuscular Volume 74.8 74.4 Mean Corpuscular Hemoglobin 24.4 24.1 Mean Corpuscular Hemoglobin Concent 32.6 32.4 Red Cell Distribution Width 15.2 14.9 Platelet Count 314 281 Mean Platelet Volume 8.6 9.1 Neutrophils (%) (Auto) 82.0 75.4 Lymphocytes (%) (Auto) 9.3 13.8 Monocytes (%) (Auto) 8.2 9.6 Eosinophils (%) (Auto) 0.2 1.0 Basophils (%) (Auto) 0.3 0.2 Neutrophils # (Auto) 9.9 8.5 Lymphocytes # (Auto) 1.1 1.6 Monocytes # (Auto) 1.0 1.1 Eosinophils # (Auto) 0.0 0.1 Basophils # (Auto) 0.0 0.0 CBC Comment DIFF FINAL DIFF FINAL Differential Comment Prothrombin Time 10.7 Prothromb Time International Ratio 1.1 Activated Partial Thromboplast Time 25.2 D-Dimer Quantitative (PE/DVT) 2.98 Blood Urea Nitrogen 11 11 Creatinine 1.09 0.87 Random Glucose 128 99 Total Protein 7.7 6.3 Albumin 3.3 2.9 Calcium Level 8.8 8.4 Magnesium Level 2.6 Alkaline Phosphatase 97 81 Aspartate Amino Transf (AST/SGOT) 183 83 Alanine Aminotransferase (ALT/SGPT) 149 114 Total Bilirubin 0.8 0.5 Sodium Level 141 144 Potassium Level 3.6 3.7 Chloride Level 103 107 Carbon Dioxide Level 29.6 27.6 Anion Gap 8 9 Estimat Glomerular Filtration Rate 65 84 Total Creatine Kinase 63 Troponin I LESS THAN 0.02 Lipase 99 Urine Color YELLOW Urine Turbidity CLEAR Urine pH 6.0 Urine Specific [place] 1.034 Urine Protein NEG Urine Glucose (UA) NEG Urine Ketones TRACE Urine Occult Blood TRACE Urine Nitrite NEG Urine Bilirubin NEG Urine Urobilinogen 0.2 Urine Leukocyte Esterase NEG Urine RBC LESS THAN 1 Urine WBC 1 Urine Squamous Epithelial Cells 3 Urine Mucus FEW Microscopic Urinalysis Comment CULT NOT INDICATED Result Diagram: 04/03/18 0333 04/03/18 0333 Logan Berry MD April 03, 2018 12:22
[2018-04-03 15:14] VITALS: BP 116/72; PULSE 78; RESP 16; TEMP 98.3; O2SAT 95
--- NOTE | 2018-04-03 16:06 | EKG ---
Date Performed: 04/02/2018 Time Performed: 20:33:51 PTAGE: 47 years EKG: SINUS TACHYCARDIA POSSIBLE LEFT ATRIAL ENLARGEMENT NONSPECIFIC T-WAVE ABNORMALITY ABNORMAL RHYTHM ECG NO PREVIOUS TRACING DOCTOR: Sherry Cano Interpretating Date/Time 04/03/2018 16:03:24
--- NOTE | 2018-04-03 18:29 | RADRPT ---
EXAM DATE: 04/03/2018 6:10 PM EDT AGE/SEX: 47 years / Female INDICATIONS: Nausea. CLINICAL DATA: This is the patient's initial encounter. Patient reports that signs and symptoms have been present for 1 day and indicates a pain score of 6/10. MEDICAL/SURGICAL HISTORY: None. Hysterectomy. Breast reduction, Tummy tuck ORAL CONTRAST: Patient refused oral contrast. RADIATION DOSE: 12.06 CTDI (mGy) COMPARISON: No prior [facility] exams available for comparison. TECHNIQUE: Multiple contiguous axial images were obtained through the abdomen and pelvis following b olus infusion of 80 ml Omnipaque 350 (iohexol) nonionic water-soluble contrast as a single exam dos e. Patient refused oral contrast. Using automated exposure control and adjustment of the mA and/or k V according to patient size, the radiation dose was kept as low as reasonably achievable to obtain op timal diagnostic quality images. FINDINGS: Lower Lungs: There is a minimal right pleural effusion. There is some patchy density identified the p osterior lower lobes and right middle lobe likely from atelectasis or minimal consolidation. There is a small focus of air in the posterior lateral left breast. There is a focal oval 2.4 cm soft tissue in this region at the left lateral posterior breast which could be a image number postsurgical change in the appropriate clinical setting. Liver: The liver has a homogeneous density without space-occupying lesion. There is no dilation of th e biliary tree. Spleen: Homogeneous density without enlargement. Pancreas: Unremarkable without mass or calcification. Kidneys: Normal in size and shape. No evidence of mass or hydronephrosis. Adrenal Glands: Unremarkable. Aorta: The aorta and proximal iliac vessels are grossly unremarkable without aneurysmal dilation. Bowel/Mesentery: There is dilatation of the proximal and mid small bowel. The distal ileum is decomp ressed. The transition occurs in the right lower quadrant although the exact point of transition is n ot clearly seen. There is a mild amount of ascites seen. The colon is not dilated. There is stool see n throughout the colon. There are scattered diverticula in the sigmoid region. There is a mild hiatal hernia present. Abdominal Wall: There are drains seen in the anterior abdominal wall bilaterally. Significant fluid collections are not seen. Retroperitoneum: No evidence of adenopathy in the retrocrural, para-aortic, or deep pelvic regions. Bladder: The bladder is decompressed. Reproductive Organs: The patient is status post hysterectomy. Inguinal: The inguinal region is unremarkable without evidence of adenopathy. Bony Structures: Unremarkable. CONCLUSION: 1. Mildly distended proximal and mid small bowel with a transition in the right lower quadrant to a decompressed distal ileum. This could be secondary to some degree of obstruction or ileus. The colon is not dilated. 2. Mild ascites. 3. Postoperative drain seen in the superficial anterior abdominal wall place from a posterior approa ch. 4. Presumed postoperative change in the left breast with a small focus of air and an oval left tissu e mass likely representing a hematoma. Electronically signed by: George Powers MD 04/03/2018 6:27 PM EDT
[2018-04-03 19:55] VITALS: BP 128/75; PULSE 81; RESP 18; TEMP 98.5; O2SAT 98
[2018-04-04] MEDS ORDERED: MORPHINE SULFATE 4 MG/ML INJ IV ONE (00:45)
[2018-04-04 01:23] VITALS: BP 128/83; PULSE 78; RESP 18; TEMP 98.7; O2SAT 97
[2018-04-04] MEDS: SODIUM CHLOR 0.9% 1000 ML INJ 1,000 ML IV SCH ×3 (01:34→15:13)
[2018-04-04 04:29] VITALS: BP 119/78; PULSE 88; RESP 18; TEMP 98.3; O2SAT 96
[2018-04-04 05:18] LABS: AUTOMATED NEUTROPHIL # 4.7 TH/MM3 (1.8-7.7); BASOPHIL % 0.5 % (0.0-2.0); EOSINOPHIL # 0.2 TH/MM3 (0-0.4); EOSINOPHIL % 2.6 % (0.0-4.0); HEMATOCRIT 28.5 % (35.0-46.0); HEMOGLOBIN 9.4 GM/DL (11.6-15.3); LYMPH % 19.6 % (9.0-44.0); LYMPHOCYTE # 1.3 TH/MM3 (1.0-4.8); MEAN CELL VOLUME 74.9 FL (80.0-100.0); MEAN CORPUSCULAR HEMOGLOBIN 24.8 PG (27.0-34.0); MEAN CORPUSCULAR HGB CONC 33.1 % (32.0-36.0); MEAN PLATELET VOLUME 8.8 FL (7.0-11.0); MONO % 9.3 % (0.0-8.0); MONOCYTE # 0.6 TH/MM3 (0-0.9); PLATELET COUNT 269 TH/MM3 (150-450); RED CELL DISTRIBUTION WIDTH 15.2 % (11.6-17.2); WHITE BLOOD COUNT 6.9 TH/MM3 (4.0-11.0)
[2018-04-04 05:50] LABS: ALBUMIN 2.7 GM/DL (3.4-5.0); AST (GOT) 70 U/L (15-37); BICARBONATE 25.5 MEQ/L (21.0-32.0); BLOOD UREA NITROGEN 5 MG/DL (7-18); CALCIUM 8.2 MG/DL (8.5-10.1); CHLORIDE 108 MEQ/L (98-107); CREATININE 0.75 MG/DL (0.50-1.00); GLOMERULAR FILTRATION RATE 100 ML/MIN (>89); GLUCOSE,RANDOM 92 MG/DL (74-106); SODIUM (NA) 144 MEQ/L (136-145)
[2018-04-04 05:52] LABS: ALT (GPT) 103 U/L (10-53)
[2018-04-04 05:54] LABS: ALKALINE PHOSPHATASE 75 U/L (45-117); TOTAL BILIRUBIN ADULT 0.4 MG/DL (0.2-1.0); TOTAL PROTEIN 5.9 GM/DL (6.4-8.2)
[2018-04-04 07:28] VITALS: BP 117/76; PULSE 76; RESP 18; TEMP 98.5; O2SAT 97
[2018-04-04] MEDS: SODIUM CHLORIDE 0.9% FLUSH 10 ML FLUSH IV FLUSH SCH (08:20)
[2018-04-04] MEDS: METOCLOPRAMIDE HCL 10 MG/2 ML VIAL IV PUSH PRN (08:21)
--- NOTE | 2018-04-04 08:35 | HHI.PR ---
Subjective Remarks Follow up on patient with intractable N/V, s/p breast reduction 03/26 and abdominoplasty 03/30. Patient seen and examined. Patient states she was able to tolerate clear liquid diet yesterday afternoon but around 7:00 last night she had another episode of nausea and vomiting. She denies any nausea or vomiting this a.m. She denies any complaints of fevers but did state that she had chills overnight. She reports large formed BM yesterday evening. She reports incisional abdominal pain. She denies any complaints of dysuria. She denies any chest pain or shortness of breath. She is n.p.o. for EGD this a.m. Objective Vitals Vital Signs Date Time Temp Pulse Resp B/P (MAP) Pulse Ox O2 Delivery O2 Flow Rate FiO2 04/04/18 07:28 98.5 76 18 117/76 (90) 97 04/04/18 04:29 98.3 88 18 119/78 (92) 96 04/04/18 01:23 98.7 78 18 128/83 (98) 97 04/03/18 19:55 98.5 81 18 128/75 (92) 98 04/03/18 15:14 98.3 78 16 116/72 (87) 95 04/03/18 11:13 98.5 88 20 118/71 (87) 95 I/O 04/03/18 04/03/18 04/03/18 04/04/18 04/04/18 04/04/18 07:00 15:00 23:00 07:00 15:00 23:00 Intake Total 1000 ml 600 ml Output Total 200 ml 30 ml Balance 800 ml 600 ml -30 ml Intake Oral 600 ml IV Total 1000 ml Output Emesis 200 ml Drainage Total 30 ml # Voids 2 # Bowel Movements 1 Result Diagram: 04/04/18 0419 04/04/18 0419 Imaging Last Impressions Abdomen/Pelvis CT 04/03/18 0000 Signed Impressions: CONCLUSION: CT Angiography 04/02/18 2322 Signed Impressions: Service Date/Time: Tuesday, April 03, 2018 00:40 - CONCLUSION: 1. No evidence of pulmonary embolism. 2. Mild pulmonary infiltrate in the right lower lobe which could represent early pneumonia. 3. Minimal pleural fluid and posterior thickening along the right lower lobe. 4. Multiple small gas collections along the posterior aspects of both breasts but no pneumothorax or pneumomediastinum. This of unclear significance and could be secondary to recent instrumentation. Michele Andrew MD Gall Bladder Ultrasound 04/02/182134 Signed Impressions: Service Date/Time: Monday, April 02, 2018 23:07 - CONCLUSION: 1. Mild echogenic debris in the gallbladder with no gallstones or wall thickening. 2. Small amount of free fluid in Apodaca's pouch. Michele Andrew MD Abdomen X-Ray 04/02/181919 Signed Impressions: Service Date/Time: Monday, April 02, 2018 19:28 - CONCLUSION: No acute abnormality. James Fuller Jr., MD Objective Remarks GENERAL: This is a well-nourished, well-developed female patient, in no apparent distress. Awake and alert. Lying in hospital bed. SKIN: No rashes, ecchymoses or lesions. Warm and dry. Surgical incisions around both breasts and abdomen appear to be healing well without any e/o infection. HEAD: Atraumatic. Normocephalic. . EYES: Pupils equal round and reactive. No injection or drainage. ENT: Nose without bleeding or purulent drainage. Airway patent. MMM. NECK: Trachea midline. No lymphadenopathy. Supple, nontender, no meningeal signs. CARDIOVASCULAR: Regular rate and rhythm without murmurs, gallops, or rubs. RESPIRATORY: Nonlabored. Clear to auscultation. Breath sounds equal bilaterally. No wheezes, rales, or rhonchi. GASTROINTESTINAL: Abdomen soft, mildly distended, diffusely tender to palpation. No guarding. +BS. Abdominal binder in place as well as [place] drain x 2 with serosanguineous fluid. MUSCULOSKELETAL: Extremities without clubbing, cyanosis, or edema. NEUROLOGICAL: Awake and alert. Cranial nerves II through XII grossly intact. Motor and sensory function appears grossly intact. No focal neurological deficits. Normal speech. PSYCHIATRIC: Appropriate mood and affect. Normal judgement and insight. A/P Problem List: (1) Nausea & vomiting ICD Code: R11.2 - Nausea with vomiting, unspecified Status: Acute (2) Elevated liver enzymes ICD Code: R74.8 - Abnormal levels of other serum enzymes Status: Acute Assessment and Plan Ms. Cam is a pleasant 47-year-old -[place] female with a recent history of breast reduction as well as abdominoplasty who presents to the emergency department due to nausea and vomiting that started on 04/01/2018. Patient went to her plastic surgeon who prescribed antinausea medication. However, despite supportive care, her symptoms continued to be persistent. Intractable nausea and vomiting possible gastroenteritis Elevated liver enzymes GERD CT abdomen/pelvis reveals mildly distended proximal and mid small bowel with transition in the right lower quadrant to decompressed distal ileum, possibly secondary to some degree of obstruction or ileus. Patient reports normal BM last night. Able to tolerate clear liquid diet yesterday afternoon but with episode of nausea vomiting last night -Consult GI, appreciate recommendations. Scheduled to undergo EGD this a.m. -continue on IV antiemetics prn -continue on IV fluid normal saline at 100 cc/h -Prevacid ODT daily Diarrhea x 2 episodes, resolved Possible ileus, improved. +formed BM yesterday. Hx of Cdiff 2011 s/p abx treatment for surgical procedures and recent 5 day course of Keflex postop -C diff neg -Stool studies pending, follow up on results -Monitor BMs Leukocytosis, suspect reactive, secondary to intractable nausea vomiting Patient is afebrile, does not appear septic -White count now within normal limits Transaminitis, suspect secondary to intractable N/V LFTs continue downward trend GB US unremarkable -continue to trend LFTs -avoid hepatotoxic agents CTA negative for PE, mild pulmonary infiltrate in the right lower lobe -will not initiate abx therapy at this time as patient with no c/o cough, SOB, fever, chills. Incentive spirometry ordered for bedside, encouraged hourly use while awake -monitor Mild Acute kidney injury, resolved with IVF Creatinine 1.09, eGFR 65. Likely due to volume depletion. -continue IVF as still with N/V, unable to tolerate diet -avoid nephrotoxic agents -monitor kidney function as indicated s/p breast reduction 03/26 and abdominoplasty 03/30 -Dr. Berry following, appreciate recommendations. Patient has appointment to follow-up in his office on Monday to have abdominal drains removed. -pain management Anemia, microcytic, hypochromic Suspect anemia of acute blood loss, postop -No evidence of active bleeding -Continue to monitor CBC as indicated Misc: - Pt denies having a diagnosis of Hep C. Also, she reports hypothyroidism but does not take any medications. Patient can follow up in the outpatient setting. Full code. Ambulation. Discharge Planning Likely discharge later today following EGD, ability to tolerate diet and GI clearance Problem Qualifiers (1) Nausea & vomiting: Qualified Codes: R11.2 - Nausea with vomiting, unspecified Renee Boogie April 04, 2018 08:35
[2018-04-04 10:33] LABS: IRON (FE) 38 MCG/DL (50-170)
[2018-04-04 10:58] LABS: % SATURATION IRON PROFILE 14.2 % (20-50); FERRITIN 99 NG/ML (8-252); TOTAL IRON BINDING CAPACITY 267 MCG/DL (250-450)
[2018-04-04 11:18] VITALS: BP 130/78; PULSE 78; RESP 18; TEMP 98.3; O2SAT 97
[2018-04-04] MEDS ORDERED: SUCCINYLCHOLINE CHLORIDE 100 MG/5 ML SYRINGE IV PUSH ONE (12:00)
[2018-04-04] MEDS ORDERED: PHENYLEPH/NS 1000 MCG/10 ML SYR IV ONE (12:00)
[2018-04-04] MEDS ORDERED: LIDOCAINE HCL 1% PF 5 ML SYRINGE OTHER ONE (12:00)
[2018-04-04] MEDS ORDERED: PROPOFOL 200 MG/20 ML AMP IV ONE (12:00)
--- NOTE | 2018-04-04 14:13 | PD.PROCEDR ---
GI Procedure PROCEDURE PERFORMED EGD INDICATION FOR PROCEDURE Nausea and vomiting PROCEDURE: The procedure, risks and benefits were discussed with Patient/POA and informed consent was obtained. Anesthesia sedated Patient with Diprivan. Patient was placed in the left lateral decubitus position. EGD: The Pentax videoscope was introduced through the oropharynx and advanced to the second portion of the duodenum under direct visualization. Retroflexion was performed in the stomach. FINDINGS: The esophagus this was normal The stomach there was a small hiatal hernia otherwise it was normal The duodenum this too was unremarkable and within normal limits ESTIMATED BLOOD LOSS: None SPECIMENS REMOVED: None COMPLICATIONS: None IMPRESSION: Small hiatal hernia otherwise normal EGD PLAN: Supportive care and monitor labs If nausea and vomiting persists consider small bowel follow-through and or gastric emptying Holland Damon MD April 04, 2018 14:13
[2018-04-04] MEDS ORDERED: MIDAZOLAM HCL 2 MG/2 ML VIAL ONE (14:18)
[2018-04-04] MEDS ORDERED: DO NOT ADM ANY ANTICOAGULANT DRUGS PRN (14:30)
[2018-04-04] MEDS: LANSOPRAZOLE SOLUTAB 30 MG TAB PO SCH (15:12)
[2018-04-04] MEDS: ACETAMINOPHEN/HYDROcodone 325 MG/5 MG TAB PO PRN (15:13)
[2018-04-04 16:28] VITALS: BP 123/78; PULSE 85; RESP 18; TEMP 98.3; O2SAT 98
[2018-04-04 16:42] VITALS: RESP 20
[2018-04-04] MEDS ORDERED: DOCUSATE SODIUM 50 MG/SENNA 8.6 MG TAB PO ONE (16:45)
[2018-04-04] MEDS ORDERED: FERR325T20 PO (16:46)
[2018-04-04] MEDS ORDERED: REGL5TAB PO (18:14)
[2018-04-05] MEDS ORDERED: DOCUSATE SODIUM 50 MG/SENNA 8.6 MG TAB PO SCH (09:00)
[2018-04-05] MEDS ORDERED: FERROUS SULFATE 325 MG (65 MG ELEMENTAL IRON) TAB PO SCH (09:00)
== END 2018-04-04 18:28 | disposition home or self-care (01) ==
LOC: NEPE 18:32 → NEDA 21:42 → NEPFCDU 23:46
PROVIDERS: ADMIT Internal Medicine; ATTEND Internal Medicine
DX: K44.9 Diaphragmatic hernia without obstruction or gangrene (principal); J98.6 Disorders of diaphragm; K21.9 Gastro-esophageal reflux disease without esophagitis; B19.20 Unspecified viral hepatitis C without hepatic coma; D50.9 Iron deficiency anemia, unspecified; D72.829 Elevated white blood cell count, unspecified; E03.9 Hypothyroidism, unspecified; E78.5 Hyperlipidemia, unspecified; E86.0 Dehydration; E07.9 Disorder of thyroid, unspecified; R79.89 Other specified abnormal findings of blood chemistry; R74.0 Nonspecific elevation of levels of transaminase and lactic acid dehydrogenase [LDH]; R74.8 Abnormal levels of other serum enzymes; R00.0 Tachycardia, unspecified; J44.9 Chronic obstructive pulmonary disease, unspecified; K59.00 Constipation, unspecified; N17.9 Acute kidney failure, unspecified; Z82.49 Family history of ischemic heart disease and other diseases of the circulatory system; Z90.710 Acquired absence of both cervix and uterus
CPT/HCPCS: 00731; 43235; 71275; 74018; 74177; 76705; 80053; 81001; 82550; 82607; 82728; 82746; 83540; 83550; 83690; 83735; 84484; 85025; 85379; 85610; 85730; 87328; 87329; 87493; 87506; 93005; 94150; 96361; 96374; 96375; 96376; 97161; 99285; C9113; G0378; G8987; G8988; J0330; J0780; J2250; J2270; J2370; J2765; J3010; J7030; Q9967